=== PATIENT | female | born 2005 | race Caucasian/White ===

== ENCOUNTER 2025-08-27 13:53 | Outpatient (CLI) | payer OTHER, SELFPAY ==
[2025-08-27 18:39] LABS: Chlamydia DNA Amplified* NOT DETECTED (No Detected); GC DNA Amplified* NOT DETECTED (No Detected)
== END 2025-08-27 13:54 | disposition home or self-care (01) ==
LOC: NFLDREF 13:53
PROVIDERS: Visit Provider Physician Assistant
DX: N89.8 Other specified noninflammatory disorders of vagina (principal)
CPT/HCPCS: 87491; 87591